=== PATIENT | female | born 2000 | race Caucasian/White ===

== ENCOUNTER 2022-05-16 20:58 | Emergency (ER) | payer OTHER, SELFPAY ==
[2022-05-16 21:04] VITALS: BP 137/75; PULSE 111; RESP 20; TEMP 37.2; O2SAT 99; BMI 17.6
[2022-05-16 21:49] VITALS: PULSE 94; O2SAT 99
--- NOTE | 2022-05-16 21:58 | ED.ALLEREA ---
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 Patient had a meal that may have contained some nuts. Subsequently had some change in voice. Had some shortness of breath. Took some Benadryl 50 mg prior to arrival. Came into the ED for further evaluation. Claims at 1 point she has some changes in voice. That has been coming and going. Patient denies any shortness of breath at this time. No coughing. No congestion or upper respiratory symptoms. No diaphoresis Related Data Previous Rx's Medication Instructions Recorded diphenhydramine HCl 25 mg capsule 25 mg PO Q8H 5 days #15 caps 05/16/22 (Benadryl) epinephrine 0.3 mg/0.3 mL 0.3 mg (0.3 mL) IM ONCE PRN 05/16/22 injection, auto-injector (EpiPen) extreme reaction #1 ea famotidine 20 mg tablet (Pepcid) 20 mg PO BID 5 days #10 tabs 05/16/22 prednisone 20 mg tablet 40 mg PO DAILY #10 tabs 05/16/22 Allergies Allergy/AdvReac Type Severity Reaction Status Date / Time tree nut Allergy Anaphylaxis Verified 05/16/22 21:02 Review of Systems Review of Systems: No fever no chills possible exposure to tree nuts Yes all other systems are reviewed and are negative [facility] Past Medical History Attestation statement: The following information was validated with the patient. Social History Social History Advance Directives: No Advance Directives Information Provided: No Physical Exam ED Vital Signs: Vital Signs - 24 hr 05/16/22 21:04 05/16/22 21:49 Temperature 98.9 F Pulse Rate 111 H 94 Respiratory Rate 20 Blood Pressure 137/75 Pulse Oximetry 99 99 Oxygen Delivery Method Room Air Room Air BMI result Body Mass Index 17.6 Appearance: Alert. Oriented X3. No acute distress. Eyes: Pupils equal, round and reactive to light. ENT: Pharynx normal. Neck: Normal inspection. Neck supple. No lymph nodes noted. No crepitus CVS: Normal heart rate and rhythm. Pulses normal. Normal S1 and S2 Respiratory: No respiratory distress. Breath sounds normal. No Wheezing. No rales Abdomen: Soft and nontender. No rigidity. No distention. good BS x4 Skin: Skin warm and dry. Normal skin color. Normal skin turgor. Extremities: No lower extremity edema. Neurovascular intact to all extremities. No Lacerations. No Rash Neuro: Oriented X 3. No motor deficit. No sensory deficit. Moving all extermities. No slurred speech MDM - Allergic Reaction MDM Narrative Medical decision making narrative: Well-appearing no distress. Lungs are clear posterior pharynx is normal. Will discharge patient home. Will give a dose of steroid and Pepcid. Patient is in stable condition. Discharge Plan Discharge Clinical Impression: Allergic reaction Patient Disposition: Home, Self-Care Instructions: General Allergic Reaction (ED) Prescriptions: New prednisone 20 mg tablet 40 mg PO DAILY Qty: 10 0RF famotidine [Pepcid] 20 mg tablet 20 mg PO BID 5 Days Qty: 10 0RF diphenhydramine HCl [Benadryl] 25 mg capsule 25 mg PO Q8H 5 Days Qty: 15 0RF epinephrine [EpiPen] 0.3 mg/0.3 mL auto-injector 0.3 mg IM ONCE PRN (Reason: extreme reaction) Qty: 1 0RF Rx Instructions: for 2 doses Referrals: Physician,Unknown J [Primary Care Provider] -
[2022-05-16] MEDS: predniSONE 20 MG TABLET 40 MG PO (22:25)
[2022-05-16] MEDS: Famotidine 20 MG TABLET PO (22:25)
== END 2022-05-16 23:01 | disposition home or self-care (01) ==
PROVIDERS: Emergency Provider Emergency Medicine Emergency Medical Services
DX: T78.1XXA Other adverse food reactions, not elsewhere classified, initial encounter (principal); R06.02 Shortness of breath; J30.5 Allergic rhinitis due to food; X58.XXXA Exposure to other specified factors, initial encounter; Z79.899 Other long term (current) drug therapy
CPT/HCPCS: 99283

== ENCOUNTER 2025-06-14 13:33 | Emergency (ER) | payer OTHER, SELFPAY ==
--- NOTE | ~2025-06-14 | XR_ITS ---
EXAMINATION: XR ABDOMEN KUB CLINICAL INDICATION: constipation COMPARISON: None available. TECHNIQUE: AP view of the abdomen. FINDINGS: There is moderate stool right colon. There is stool and gas in the transverse colon. Bowel gas pattern is unremarkable. XR/XR KUB IMPRESSION: Unremarkable examination. Electronically signed by: Mainor Aceves MD 06/14/2025 02:23 PM EDT
--- NOTE | 2025-06-14 13:40 | ED_ITS ---
HPI - General Adult General Chief complaint: General Medical Stated complaint: Obstructed bowels Time Seen by Provider: 06/14/25 17:42 Source: patient and other (Significant other, [place]) Mode of arrival: ambulatory Limitations: no limitations History of Present Illness ED Provider: Dr. Jey Crouch HPI narrative: 25-year-old female with no significant past medical or surgical history who presents emergency department for evaluation of constipation times 2-3 days. Patient states she does have difficulty with constipation but has never had difficulty moving her bowels. She states that every time she tries to have a bowel movement she feels like the stool gets stuck and she is unable to push it out. She states that she is having intermittent abdominal pain which comes in waves. She does not feel bloated. She denied nausea or vomiting. She states that she tried using a Fleet's enema with no relief of her symptoms. She is not taking any new medications. She is not taking any supplements. She has had no changes in her diet or fluid intake. Related Data Previous Rx's ?Medication ?Instructions ?Recorded diphenhydramine HCl 25 mg capsule 25 mg PO Q8H 5 days #15 caps 05/16/22 (Benadryl) epinephrine 0.3 mg/0.3 mL 0.3 mg (0.3 mL) IM ONCE PRN 05/16/22 injection, auto-injector (EpiPen) extreme reaction #1 ea famotidine 20 mg tablet (Pepcid) 20 mg PO BID 5 days # 10 tabs 05/16/22 prednisone 20 mg tablet 40 mg (2 x 20 mg) PO DAILY # 10 tabs 05/16/22 Allergies Allergy/AdvReac Type Severity Reaction Status Date / Time tree nut Allergy Anaphylaxis Verified 06/14/25 13:42 Review of Systems Review of Systems: Yes all other systems are reviewed and are negative [facility] Past Medical History [facility] Narrative: Social history: The patient states that she has smoked cigarettes and vapes nicotine products since she was 16 years old but stopped 5 days prior. She denies alcohol and drug use. Social History Social History Smoked in Last 30 Days: No Use of substances other than those prescribed or required for medical reasons: No Advance Directives: No Advance Directives Information Provided: No Do you have a plan to hurt others: No Plan Patient : No Physical Exam ED Vital Signs: Vital Signs - 24 hr 06/14/25 13:41 06/14/25 18:34 Temperature 98.7 F 97.8 F Pulse Rate 102 H 92 Respiratory Rate 16 12 Blood Pressure 128/75 125/81 Pulse Oximetry 100 98 Oxygen Delivery Method Room Air Room Air BMI result Body Mass Index 19.4 Vital signs revealed an elevated heart rate of 102. Exam: General: Awake, alert in no distress Abdomen: soft, normoactive bowel sounds, mild distention, no tenderness Rectal: No fecal impaction Psych: Pleasant, cooperative Course Course Course Narrative: This is a rapid medical exam performed by Emiliana Virgen NP: Additional HPI, ROS, PE not included below will be deferred to primary provider. Patient is a 25-year-old female presenting to the ED with complaint of constipation. States she has not had a bowel movement in a few days. Took Immodium. Plan: FAUSTO, KASIA Medical Decision Making Medical Decision Making MDM Narrative: 25-year-old female with no significant past medical or surgical history who presents emergency department for evaluation of constipation times 2-3 days. Patient states she does have difficulty with constipation but has never had difficulty moving her bowels. She states that every time she tries to have a bowel movement she feels like the stool gets stuck and she is unable to push it out. She states that she is having intermittent abdominal pain which comes in waves. She does not feel bloated. She denied nausea or vomiting. She states that she tried using a Fleet's enema with no relief of her symptoms. She is not taking any new medications. She is not taking any supplements. She has had no changes in her diet or fluid intake. Vital signs revealed elevated heart rate otherwise unremarkable. Abdomen patient had mild distention with no abdominal tenderness and normoactive bowel sounds. Differential diagnosis: ?Includes but is not limited to obstipation, constipation, fecal impaction, bowel obstruction Course: 18:01 Patient's KUB did reveal stool in the patient's left and right colon with a normal gas pattern. I did order a soapsuds enema for the patient. 19:50 Patient had good result with the soapsuds enema. Patient was advised to increase her fluid intake, Metamucil daily, Colace twice a day and extra- strength as needed for no bowel movement after 3 or 4 days. Admission/Observation Consideration of admission/observation: Escalation of care including admission/observation considered (No) Lab Data MDM Lab Attestation statement: I reviewed the patient's lab results. Independent Interpretation I performed an independent interpretation of an: Plain X-Ray Interpretation: My interpretation of the patient's one-view KUB is as follows: Stool in the right and left colon with normal gas part and, no evidence for obstructions Radiology Impression Discussion of test interpretation with radiology: I have reviewed the radiologist's reading. Radiologist Impression: EXAMINATION: XR ABDOMEN KUB CLINICAL INDICATION: constipation FINDINGS: There is moderate stool right colon. There is stool and gas in the transverse colon. Bowel gas pattern is unremarkable. IMPRESSION: Unremarkable examination. Electronically signed by: Mainor Aceves MD 06/14/2025 02:23 PM EDT RP Dictated By: Mainor Aceves MD Independent Historian Clinical information obtained from an independent historian. History obtained from or confirmed by: Other (Significant other) Discharge Plan Discharge Clinical Impression: Constipation Patient Disposition: Home, Self-Care Instructions: Constipation (ED) Additional Instructions: The x-ray of your abdomen showed that you did have a large stool burden with stool in both the left and right colon which is consistent with severe constipation. You received a soapsuds enema here in the emergency department. I want you to increase your fluid intake to prevent dehydration. Take Metamucil powder 1 tsp in 8 oz of water daily for the next 2 weeks or you can take Metamucil cookies as directed on the box twice a day for 2 weeks Take Colace stool softener 100 mg twice a day for the next 2 weeks. If you do not have a good bowel movement in 3-4 days then take extra-strength Senokot 2 pills twice a day until you have a bowel movement. Follow-up with your doctor in 2 days. Please return to the emergency department if your symptoms get worse or if you develop any symptoms that are concerning to you. Prescriptions: No Action prednisone 20 mg tablet 40 mg PO DAILY Qty: 10 0RF famotidine [Pepcid] 20 mg tablet 20 mg PO BID 5 Days Qty: 10 0RF diphenhydramine HCl [Benadryl] 25 mg capsule 25 mg PO Q8H 5 Days Qty: 15 0RF epinephrine [EpiPen] 0.3 mg/0.3 mL auto-injector 0.3 mg IM ONCE PRN (Reason: extreme reaction) Qty: 1 0RF Rx Instructions: for 2 doses Print Language: Slovak
[2025-06-14 13:41] VITALS: BP 128/75; PULSE 102; RESP 16; TEMP 37.1; O2SAT 100; BMI 19.4
[2025-06-14 18:34] VITALS: BP 125/81; PULSE 92; RESP 12; TEMP 36.6; O2SAT 98
[2025-06-14 20:05] VITALS: BP 125/81; PULSE 92; RESP 12; TEMP 36.6; O2SAT 98
== END 2025-06-14 20:05 | disposition home or self-care (01) ==
PROVIDERS: Emergency Provider Emergency Medicine Emergency Medical Services
DX: K59.00 Constipation, unspecified (principal)
CPT/HCPCS: 74018; 99284

== ENCOUNTER → 2025-06-14 13:42 | Outpatient (BNV) | payer OTHER, SELFPAY | PROVIDERS: Visit Provider Radiology Diagnostic Radiology | DX: K59.00 Constipation, unspecified (principal) | CPT/HCPCS: 74018 ==

== ENCOUNTER 2025-08-21 00:08 | Emergency (ER) | payer OTHER, SELFPAY ==
--- NOTE | 2025-08-21 | ECG_ITS ---
Test Reason : CHEST PAIN Blood Pressure : */* mmHG Vent. Rate : 125 BPM Atrial Rate : 125 BPM P-R Int : 136 ms QRS Dur : 94 ms QT Int : 310 ms P-R-T Axes : 75 77 59 degrees QTcB Int : 447 ms Sinus tachycardia Low voltage QRS Incomplete right bundle branch block Nonspecific ST and T wave abnormality Abnormal ECG No previous ECGs available Referred By: Generic ED Physician Electronically Signed By: DEVENDRA REICH
--- NOTE | ~2025-08-21 | XR_ITS ---
CLINICAL HISTORY: cp 2 view chest x-ray Comparison: None provided Findings: No consolidation or effusion. Heart size is normal. No acute fracture. IMPRESSION: 1. No acute findings. This document has been electronically signed by: Lizeth Lisa MD on 08/21/2025 01:13:01
[2025-08-21 00:29] LABS: MANUAL DIFF FLAG NO
[2025-08-21 00:33] LABS: Hematocrit 35.0 % (37.0-47.0); Hemoglobin 11.3 g/dl (12.0-16.0); Imm Gran Abs Auto 0.01 X10*3/uL (0.00-0.03); Imm Gran Pct Auto 0.1 % (0.0-0.4); Lymphocytes Absolute Auto 2.9 X10*3/uL (1.2-4.9); Mean Corpuscular HGB Conc 32.3 g/dl (31.0-35.0); Mean Corpuscular Hemoglobin 25.5 pg (27.0-33.0); Mean Corpuscular Volume 78.8 fL (80.0-98.0); NRBC Abs Auto 0.000 X10*3/uL (0.0-0.012); NRBC Pct Auto 0.0 /100WBC (0.0-0.2); Platelet Count 236 X10*3/uL (160-400); Red Blood Count 4.44 X10*6/uL (4.20-5.50); White Blood Count 8.4 X10*3/uL (4.8-10.8)
[2025-08-21 00:43] LABS: Alanine Aminotransferase 8 U/L (0-31); Albumin Level 4.7 g/dL (3.5-5.0); Alkaline Phosphatase 53 U/L (39-117); Anion Gap 13 (12-20); Aspartate Amino Transferase 16 U/L (5-31); Blood Urea Nitrogen 9 mg/dL (9-16); Calcium 10.3 mg/dL (8.4-10.2); Carbon Dioxide 20 mmol/L (22-29); Chloride 109 mmol/L (96-108); Estimated Glomerular Filt Rate > 60; Potassium 3.2 mmol/L (3.3-5.1); Sodium 139 mmol/L (135-145); Total Protein 7.6 g/dL (6.5-8.0)
[2025-08-21 00:44] VITALS: BP 128/75; PULSE 102; RESP 14; TEMP 36.8; O2SAT 100; BMI 19.8
[2025-08-21 00:52] LABS: Troponin-I High Sensitivity < 2.7 ng/L (<3.5-17.0)
--- OUTSIDE RECORDS SUMMARY | 2025-08-21 01:00 | XMS_ITS ---
Author Name [facility] Organization Unknown Encounters Encounter Type Encounter Reason Primary Diagnosis Location Date Ambulatory Encounter for general adult medical examination without abnormal findings Encounter for general adult medical examination without abnormal findings [place] 01/19/2024 Care Team Organization Name Specialty Phone Email Start Date End [facility] Primary Care 01/19/2024 02/08/2025 [place] 12/13/2023 [employer] [facility] Primary Care 07/20/2023 07/20/2023
--- OUTSIDE RECORDS SUMMARY | 2025-08-21 01:00 | XMS_ITS | Clinical Summary ---
Author Organization [facility] Address [address] [place] [id number] Care Team Providers Care Clay Pigeon Setter Name Role Phone Asuncion Leon APRN Primary Care Provider [phone] Allergies Active Allergy Reactions Criticality Noted Date Comments Tree Nut Hives,Swelling Medium 03/31/2023 Medications FLUoxetine (PROzac) 20 MG capsuleIndicati ons:Medication refill TAKE 1 CAPSULE BY MOUTH EVERY DAY 90 capsule 10/26/2024 Active Active Problems Problem Noted Date Diagnosed Date Anxiety 01/19/2024 Assessment & Plan (01/19/2024 5:07 PM EST): Stable on fluoxetine 20mg daily. Continue current dose. Immunizations Immunization Administration Dates Next Due Tdap 01/19/2024 Social History Tobacco Use Types Packs/Day Years Used Date Smoking Tobacco: Former Cigarettes 0.5 4 2 017 - 2020 Smokeless Tobacco: Never Tobacco Cessation:Counseling Given: Not Answered PHQ-2 Answer Date Recorded PHQ-2 Total Score 2 01/19/2024 Comments No Sex and Gender Information Value Date Recorded Sex Assigned at Female 01/17/2023 10:33 AM EST Legal Sex Female 2:10 PM EST Gender Identity Female 01/17/2023 10:33 AM EST Sexual Orientation Choose not to disclose 2022 10:33 AM EST Last Filed Vital Signs Vital Sign Reading Time Taken Comments Blood Pressure 121/64 01/19/2024 10:18 AM EST Pulse 85 01/19/2024 10:18 AM EST Temperature - - Respiratory Rate - - Oxygen Saturation 100% 01/19/2024 10:18 AM EST Inhaled Oxygen Concentration - - Weight 53.2 kg (117 lb 3.2 oz) 01/19/2024 10:18 AM EST Height 167.6 cm (5' 6 ) 01/19/2024 10:18 AM EST Body Mass Index 18.92 01/19/2024 10:18 AM EST Plan of Treatment Upcoming Encounters Date Type Department Care Team (Late st Contact Info) Description 08/25/2025 8:20 AM EDT Office Visit [facility] Department of Internal Medicine [place] [address] [facility] [place] [address] Asuncion Leon, CONFIGURATION MANAGEMENT SPECIALIST [address] [place] [address] Health Maintenance Due Date Last Done Comments Hepatitis C Virus Screening 2000 HIV Screening 2013 HPV Vaccines (1 - 3-dose series) 2015 Hepatitis B Vaccines (1 of 3 - 19+ 3-dose series) 2019 Pap Smear (Ages 21-65) 2021 DTaP/Tdap/Td Vaccines (2 - T d or Tdap) 01/19/2034 01/19/2024 COVID-19 Vaccine Discontinued Influenza Vaccine Discontinued Pneumococcal Vaccine: Pediat arian (0-5 Years) and At-Risk Patients (6 to 49 Years) Aged Out No longer eligible b ased on patient's age to complete this topic Insurance [employer] Care Teams Clay Pigeon Setter Relationship Specialty Start Date End Date Asuncion Leon APRN [address] [place] [address] PCP - General Internal Medicine 07/20/23
--- OUTSIDE RECORDS SUMMARY | 2025-08-21 01:00 | XMS_ITS | Encounter Summary ---
Author Organization [facility] Address [address] [place] [address] Care Team Providers Care Slip Cover Seamstress Name Role Phone Asuncion Leon APRN Primary Care Provider [phone] Reason for Visit * Reason Comments Medication Refill Encounter Details Date Type Department Care Team (Late Contact Info) Description 01/22/2025 Refill [facility] Department of Internal Medicine [address] [phone] Asuncion Leon APRN [address] [place] [address] Medication refill Social History Tobacco Use Types Packs/Day Years Used Date Smoking Tobacco: Former Cigarettes 0.5 4 2 - 2020 Smokeless Tobacco: Never PHQ-2 Answer Date Recorded PHQ-2 Total Score 2 01/19/2024 Comments No Sex and Gender Information Value Date Recorded Sex Assigned at Female 01/17/2023 10:33 AM EST Legal Sex Female 2:10 PM EST Gender Identity Female 01/17/2023 10:33 AM EST Sexual Orientation Choose not to disclose 2022 10:33 AM EST documented as of this encounter Miscellaneous Notes * Telephone Encounter - Karely Mccormick LPN - 01/23/2025 8:54 AM EST Patient is missing a follow up appointment OR needs appropriate labs for prescription renewal. documented in this encounter Plan of Treatment Upcoming Encounters Date Type Department Care Team (Late Contact Info) Description 08/25/2025 8:20 AM EDT Office Visit [facility] Department of Internal Medicine [address] [place] [address] Asuncion Leon APRN [address] [place], [place] [id number] documented as of this encounter Visit Diagnoses Diagnosis Medication refill Issue of repeat prescriptions documented in this encounter Care Teams Slip Cover Seamstress Relationship Specialty Start Date End Date Asuncion Leon, ELI [address] [place], [place] [address] PCP - General Internal Medicine 07/20/23 documented as of this encounter
--- NOTE | 2025-08-21 01:18 | ED_ITS ---
HPI - Chest Pain General Chief Complaint: Chest Pain Stated Complaint: chest pain Time Seen by Provider: 08/21/25 01:08 Source: patient Limitations: no limitations History of Present Illness ED Provider: Joelen Brenner PA-C HPI narrative: 25F with a past medical history significant for anxiety presents to the ED for chest pain. States she has had intermittent chest pain for the past 2 years which has intensified and become more frequent over time. Presents today because the pain has been constant. States it is central but radiates to the back and bilateral shoulders. Pain does not change with position changes, nonpleuritic. Denies dyspnea, diaphoresis, dizziness. Smokes 1/2 - 1 pack of cigarettes per day for the past 9 years. Shared she took fluoxetine for a short period which made her chest pain worse. Stopped 1 year ago. Takes benadryl PRN to help her sleep. Related Data Previous Rx's ?Medication ?Instructions ?Recorded diphenhydramine HCl 25 mg capsule 25 mg PO Q8H 5 days #15 caps 05/16/22 (Benadryl) epinephrine 0.3 mg/0.3 mL 0.3 mg (0.3 mL) IM ONCE PRN 05/16/22 injection, auto-injector (EpiPen) extreme reaction #1 ea famotidine 20 mg tablet (Pepcid) 20 mg PO BID 5 days # 10 tabs 05/16/22 prednisone 20 mg tablet 40 mg (2 x 20 mg) PO DAILY # 10 tabs 05/16/22 Allergies Allergy/AdvReac Type Severity Reaction Status Date / Time tree nut Allergy Anaphylaxis Verified 08/21/25 00:47 Review of Systems 2 Review of Systems: Yes all other systems are reviewed and are negative Constitutional: Constitutional: Denies fatigue and Denies fever(s) Cardiovascular: Cardiovascular: Reports chest pain and Denies dyspnea Respiratory: Respiratory: Denies cough and Denies dyspnea Gastrointestinal: Gastrointestinal: Denies abdominal pain, Denies nausea and Denies vomiting Musculoskeletal: Musculoskeletal: Denies back pain Endocrine: Endocrine: Denies fatigue PMFSH Past Medical History Attestation statement: The following information was validated with the patient. Social History Social History Advance Directives: No Advance Directives Information Provided: No Physical Exam 2 Vital Signs: Vital Signs: Last Vital Signs Temp 98.2 F 08/21/25 00:44 Pulse 82 08/21/25 02:45 Resp 14 08/21/25 02:45 BP 113/54 L 08/21/25 02:45 Pulse Ox 100 08/21/25 00:44 O2 Del Method Room Air 08/21/25 00:44 BMI result Body Mass Index 19.8 Const: Other: Alert Orientation/consciousness: patient oriented x3 Resp: Effort & Inspection: normal respiratory effort Cardio: Other: Normal peripheral perfusion Skin: Other: Warm dry no rash Neuro: General: patient oriented x3, gait normal, no focal motor deficits and CN's II-XI intact bilaterally Psych: Other: Cooperative Course Course Course Narrative: I Joleen Brenner PA-C personally performed the history, physical and assessment of the patient. Majo PICHARDO helped to formulate the medical documentation Medications Administered Discontinued Medications Generic Name Dose Route Start Last Admin Trade Name Freq PRN Reason Stop Dose Admin Magnesium Sulfate 2 gm in 50 mls @ 150 mls/hr 08/21/25 01:21 08/21/25 02:08 Magnesium Sulfate/H2o IV 08/21/25 01:40 Infused ONCE ONE Infusion Potassium Chloride 10 meq in 100 mls @ 100 mls/hr 08/21/25 01:30 08/21/25 02:44 Potassium Chloride/H20 IV 08/21/25 03:29 100 mls/hr Q1H [facility] Administration Sodium Chloride 1,000 mls @ 999 mls/hr 08/21/25 01:45 08/21/25 01:39 Ns IV 08/21/25 02:45 999 mls/hr .Q1H1M [place] Administration Medical Decision Making Medical Decision Making [facility] Narrative: 25F with a past medical history significant for anxiety presents to the ED for chest pain. States she has had intermittent chest pain for the past 2 years which has intensified and become more frequent over time. Presents today because the pain has been constant. States it is central but radiates to the back and bilateral shoulders. Pain does not change with position changes, nonpleuritic. Denies dyspnea, diaphoresis, dizziness. Smokes 1/2 - 1 pack of cigarettes per day for the past 9 years. Takes benadryl PRN to help her sleep. ACS considered and screening labs, with troponin, EKG, CXR obtained. To note her heart score is 0. No evidence of STEMI and troponin flat. Initial QTc of 577, 2gm IVPUSH magnesium given. The patient has been on medication for anxiety and depression remotely, she has been off them for 2 years. She does not take methadone. She does however take Benadryl often, this is the likely cause of the her QTC. Magnesium level pending. Potassium slightly low at 3.2, potassium given. Repeat QTc of 425. PE considered, she is tachycardic, there is somewhat of a pleuritic nature to the discomfort. However she is not hypoxic, she has no objective signs symptoms concerning for DVT on exam, a dimer was obtained and was negative. Costochrondritis unlikely, pain not reproducible on palpation. Myocarditis unlikely with the absence of viral prodrome, and trop neg at < 2.7 Chest pain likely anxiety induced. CXR Findings: No consolidation or effusion. Heart size is normal. No acute fracture. IMPRESSION: 1. No acute findings. EKG Vent. Rate : 88 BPM Atrial Rate : 88 BPM P-R Int : 138 ms QRS Dur : 90 ms QT Int : 352 ms P-R-T Axes : 74 81 18 degrees QTcB Int : 425 ms Normal sinus rhythm with sinus arrhythmia Nonspecific T wave abnormality Abnormal ECG When compared with ECG of 21-Aug-2025 00:15, Incomplete right bundle branch block is no longer Present Nonspecific T wave abnormality has replaced inverted T waves in Inferior leads Nonspecific T wave abnormality has replaced inverted T waves in Lateral leads Differential Diagnosis Differential Diagnoses: The differential diagnosis associated with the presentation includes See medical decision-making Admission/Observation Consideration of admission/observation: Escalation of care including admission/observation considered Not applicable Lab Data MDM Lab Attestation statement: I reviewed the patient's lab results. 08/21/25 00:18 08/21/25 00:18 Labs: Lab Results 08/21/25 08/21/25 08/21/25 Range/Units 00:18 01:19 01:21 WBC 8.4 (4.8-10.8) X10*3/uL RBC 4.44 (4.20-5.50) X10*6/uL Hgb 11.3 L (12.0-16.0) g/dl Hct 35.0 L (37.0-47.0) % MCV 78.8 L (80.0-98.0) fL MCH 25.5 L (27.0-33.0) pg MCHC 32.3 (31.0-35.0) g/dl RDW 14.8 (11.0-16.0) % Plt Count 236 (160-400) X10*3/uL MPV 11.2 (9.4-12.3) fL Immature Gran % (Auto) 0.1 (0.0-0.4) % Neut % (Auto) 56.9 (45-73) % Lymph % (Auto) 35.1 (20-40) % [place] % (Auto) 5.7 (2-11) % Eos % (Auto) 1.8 (0-4) % Baso % (Auto) 0.4 (0-2) % Lymph # (Auto) 2.9 (1.2-4.9) X10*3/uL [place] # (Auto) 0.5 (0.1-1.2) X10*3/uL Eos # (Auto) 0.2 (0.0-0.4) X10*3/uL Baso # (Auto) 0.0 (0.0-0.2) X10*3/uL Abs Immat Gran (auto) 0.01 (0.00-0.03) X10*3/uL Absolute Neuts (auto) 4.8 (2.0-8.3) x10*3/uL Absolute Nucleated RBC 0.000 (0.0-0.012) X10*3/uL Nucleated RBC % (auto) 0.0 (0.0-0.2) /100WBC D-Dimer High Sensitivty NG/ML Sodium 139 (135-145) mmol/L Potassium 3.2 L (3.3-5.1) mmol/L Chloride 109 H (96-108) mmol/L Carbon Dioxide 20 L (22-29) mmol/L Anion Gap 13 (12-20) BUN 9 (9-16) mg/dL Creatinine 0.64 (0.5-1.4) mg/dL Estim Creat Clear Calc TNP Estimated GFR > 60 Random Glucose 109 (60-115) mg/dL Calcium 10.3 H (8.4-10.2) mg/dL Magnesium 2.1 (1.6-2.6) mg/dL Total Bilirubin 0.4 (0.0-1.0) mg/dL AST 16 (5-31) U/L ALT 8 (0-31) U/L Alkaline Phosphatase 53 (39-117) U/L Troponin I High Sens < 2.7 (<3.5-17.0) ng/L Total Protein 7.6 (6.5-8.0) g/dL Albumin 4.7 (3.5-5.0) g/dL Urine Test NEGATIVE (NEGATIVE) COVID-19 ([facility]) Negative (Negative) COVID-19 Clin Com See Note 08/21/25 Range/Units 01:30 WBC (4.8-10.8) X10*3/uL RBC (4.20-5.50) X10*6/uL Hgb (12.0-16.0) g/dl Hct (37.0-47.0) % MCV (80.0-98.0) fL MCH (27.0-33.0) pg MCHC (31.0-35.0) g/dl RDW (11.0-16.0) % Plt Count (160-400) X10*3/uL MPV (9.4-12.3) fL Immature Gran % (Auto) (0.0-0.4) % Neut % (Auto) (45-73) % Lymph % (Auto) (20-40) % [place] % (Auto) (2-11) % Eos % (Auto) (0-4) % Baso % (Auto) (0-2) % Lymph # (Auto) (1.2-4.9) X10*3/uL [place] # (Auto) (0.1-1.2) X10*3/uL Eos # (Auto) (0.0-0.4) X10*3/uL Baso # (Auto) (0.0-0.2) X10*3/uL Abs Immat Gran (auto) (0.00-0.03) X10*3/uL Absolute Neuts (auto) (2.0-8.3) x10*3/uL Absolute Nucleated RBC (0.0-0.012) X10*3/uL Nucleated RBC % (auto) (0.0-0.2) /100WBC D-Dimer High Sensitivty < 150 NG/ML Sodium (135-145) mmol/L Potassium (3.3-5.1) mmol/L Chloride (96-108) mmol/L Carbon Dioxide (22-29) mmol/L Anion Gap (12-20) BUN (9-16) mg/dL Creatinine (0.5-1.4) mg/dL Estim Creat Clear Calc Estimated GFR Random Glucose (60-115) mg/dL Calcium (8.4-10.2) mg/dL Magnesium (1.6-2.6) mg/dL Total Bilirubin (0.0-1.0) mg/dL AST (5-31) U/L ALT (0-31) U/L Alkaline Phosphatase (39-117) U/L Troponin I High Sens (<3.5-17.0) ng/L Total Protein (6.5-8.0) g/dL Albumin (3.5-5.0) g/dL Urine Test (NEGATIVE) COVID-19 ([facility]) (Negative) COVID-19 Clin Com Independent Interpretation I performed an independent interpretation of an: EKG Radiology Impression Discussion of test interpretation with radiology: I have reviewed the radiologist's reading. Discharge Plan Discharge Clinical Impression: Atypical chest pain Patient Disposition: Home, Self-Care Instructions: Noncardiac Chest Pain (ED) Additional Instructions: You were evaluated in the emergency department for chest pain. You cardiac testing came back negative, making the etiology of your chest pain to likely be anxiety induced. Your EKG improved once your heart rate was controlled. Your cardiac enzyme was negative, the chest x-ray was clear. The use of Benadryl also played a role in some of the abnormalities noted on the EKG. I would discontinue the use of that product. Recommend follow up with your PCP. We encourage smoking cessation. Prescriptions: No Action prednisone 20 mg tablet 40 mg PO DAILY Qty: 10 0RF famotidine [Pepcid] 20 mg tablet 20 mg PO BID 5 Days Qty: 10 0RF diphenhydramine HCl [Benadryl] 25 mg capsule 25 mg PO Q8H 5 Days Qty: 15 0RF epinephrine [EpiPen] 0.3 mg/0.3 mL auto-injector 0.3 mg IM ONCE PRN (Reason: extreme reaction) Qty: 1 0RF Rx Instructions: for 2 doses Stand Alone Forms: Work/School Release Print Language: Z[place]ian
[2025-08-21 01:35] LABS: Magnesium 2.1 mg/dL (1.6-2.6)
[2025-08-21 01:36] LABS: UPreg QC Valid YES
[2025-08-21] MEDS: Magnesium Sulfate/H2O 2 GM/50 ML PIGGYBACK IV (01:38)
[2025-08-21] MEDS: Potassium Chloride/H20 10 MEQ/100 ML PIGGYBACK 100 MEQ IV ×2 (01:38→02:44)
--- NOTE | 2025-08-21 01:45 | ECG_ITS ---
Test Reason : PROLONG QTC Blood Pressure : */* mmHG Vent. Rate : 88 BPM Atrial Rate : 88 BPM P-R Int : 138 ms QRS Dur : 90 ms QT Int : 352 ms P-R-T Axes : 74 81 18 degrees QTcB Int : 425 ms Normal sinus rhythm with sinus arrhythmia Nonspecific T wave abnormality Abnormal ECG When compared with ECG of 21-Aug-2025 00:15, Incomplete right bundle branch block is no longer Present Nonspecific T wave abnormality has replaced inverted T waves in Inferior leads Nonspecific T wave abnormality has replaced inverted T waves in Lateral leads Referred By: Joleen Brenner Electronically Signed By: DEVENDRA REICH
[2025-08-21 01:48] LABS: COVID-19 Test Negative (Negative); IDNOW Serial# 6674DD1D
[2025-08-21 01:53] LABS: D Dimer High Sensitivity < 150 NG/ML
[2025-08-21 02:45] VITALS: BP 113/54; PULSE 82; RESP 14
--- NOTE | 2025-08-21 03:31 | PC.NURSE ---
states improvement in mid CP, now barely noticeable and no longer radiating
--- NOTE | 2025-08-21 03:35 | PC.NURSE ---
ambulating steadily without assist or symptoms
[2025-08-21 04:34] VITALS: BP 108/71; PULSE 82; RESP 16; TEMP 36.8; O2SAT 99
== END 2025-08-21 04:50 | disposition home or self-care (01) ==
PROVIDERS: Physician Assistant Medical; Emergency Provider Emergency Medicine
DX: R07.89 Other chest pain (principal); F41.9 Anxiety disorder, unspecified; Z72.0 Tobacco use; Z79.899 Other long term (current) drug therapy
CPT/HCPCS: 36415; 71046; 80053; 81025; 83735; 84484; 85025; 85379; 87635; 93005; 96365; 96375; 99285; J3475; J3480

== ENCOUNTER → 2025-08-21 00:15 | Outpatient (BNV) | payer OTHER, SELFPAY | PROVIDERS: Emergency Provider Emergency Medicine; Visit Provider Internal Medicine | DX: I45.10 Unspecified right bundle-branch block (principal); R00.0 Tachycardia, unspecified; I49.9 Cardiac arrhythmia, unspecified | CPT/HCPCS: 93010 ==

== ENCOUNTER → 2025-08-21 00:24 | Outpatient (BNV) | payer OTHER, SELFPAY | PROVIDERS: Visit Provider Student in an Organized Health Care Education/Training Program | DX: R07.89 Other chest pain (principal) | CPT/HCPCS: 71046 ==